=== PATIENT | male | born 1960 | race Caucasian/White ===

== ENCOUNTER 2022-07-13 13:28 | Inpatient (IN) | payer OTHER, SELFPAY ==
[2022-07-13] VITALS (23 sets, daily range): BP systolic 108–163; BP diastolic 60–90; PULSE 49–80; RESP 12–21; TEMP 36.3; O2SAT 93–99; BMI 29.5
--- NOTE | 2022-07-13 | ECHO_ITS ---
Patient Info Name: Fantasma Fermin Age: 62 years : 1960 Gender: Male Ht: 67 in Wt: 180 lbs BSA: 1.98 m2 HR: 68 bpm BP: 145 / 76 mmHg Heart Rhythm: Sinus Rhythm Technical Quality: Fair Exam Date: 07/13/2022 4:24 PM Exam Location: [facility] Pulmonary Patient Status: Inpatient Admit Date: 07/13/2022 Staff Ordering Physician: Onesimo Pretty MD (kim/arabella) Driver'S License Reviewing Officer: Jil Garcias RDCS Attending Provider: Onesimo Pretty MD (kim/arabella) Referring Physician: Sukhwinder BARRERA; Exam Type: CA echo dop color flow w con Study Info Indications - s/p STEMI Complete two-dimensional, color flow and Doppler transthoracic echocardiogram is performed with contrast to opacify the left ventricle and to improve the deliniation of the left ventricle endocardial borders. Contrast/Agitated Saline Contrast/Ag. Saline: Definity Amount: 3.00 ml Administered By: Jil Garcias RDCS Existing IV Access: Yes IV Access Condition: patent with no signs of infiltration Summary 1. Left ventricular systolic function is normal, estimated at 55-60%. 2. The left ventricular diastolic function is grade I diastolic dysfunction. 3. Right ventricular chamber dimension is normal. 4. Right ventricular systolic function is reduced. 5. No significant valvular disease. Left Ventricle Left ventricular chamber dimension is normal. Left ventricular systolic function is normal, estimated at 55-60%. There is no increased left ventricular wall thickness. The left ventricular diastolic function is grade I diastolic dysfunction. Right Ventricle Right ventricular chamber dimension is normal. Right ventricular systolic function is reduced. Left Atria Left atrial chamber dimension is normal. Right Atria Right atrial chamber dimension is normal. Aortic Valve The aortic valve is not well visualized. There is no aortic valve stenosis. There is no aortic valve regurgitation. Pulmonic Valve The pulmonic valve is not well visualized. Mitral Valve The mitral valve has normal leaflets. There is no mitral valve stenosis. There is no mitral valve regurgitation. Tricuspid Valve There is trace tricuspid valve regurgitation. Pericardium/Pleural There is no pericardial effusion. Aorta The aortic root size at the sinus of Valsalva is not well visualized. Left Ventricular Outflow Tract Name Value Normal LVOT 2D LVOT Diameter 1.99 cm LVOT Doppler LVOT Peak Gradient 2 mmHg LVOT Mean Gradient 1 mmHg LVOT VTI 13.57 cm LVOT VTI/AV VTI Ratio 0.59 LVOT Stroke Volume 42.34 ml LVOT CO 2.26 l/min LVOT CI 1.14 L/min/m2 Pulmonic Valve Name Value Normal RVOT Doppler
--- NOTE | 2022-07-13 | ECG_ITS ---
Measurements Intervals [place] Rate: 54 P: 43 NE: 184 QRS: 32 QRSD: 105 T: 48 QT: 434 QTc: 412 Interpretive Statements SINUS BRADYCARDIA WITH OCCASIONAL SUPRAVENTRICULAR PREMATURE COMPLEXES NO PREVIOUS ECG AVAILABLE FOR COMPARISON Electronically Signed On 07-13-2022 18:13:56 REMELT FURNACE EXPEDITER by Onesimo Pretty M.D.
--- NOTE | ~2022-07-13 | XR_ITS ---
EXAMINATION: XR chest 2V DATE: 07/15/2022 08:15 INDICATION: Chest pain. TECHNIQUE: Frontal and lateral views of the chest were obtained. COMPARISON: None. FINDINGS: A calcified right lung nodule and calcified right hilar lymph nodes are consistent with old granulomatous disease. No pleural effusion or pneumothorax. The heart size is normal. There are hernández ges of anterior fusion procedure in cervical spine. IMPRESSION: 1. No acute cardiopulmonary disease. Reviewed, dictated and finalized at location A. HALMIC SURGEON
--- NOTE | 2022-07-13 13:31 | ED_ITS ---
HPI - Chest Pain General Chief Complaint: Chest Pain Stated Complaint: stemi Source: RN notes reviewed History of Present Illness HPI narrative: Patient presents emergency department via EMS for chest pain. Patient states chest pain began while shoveling his car between [place] he states the pain is located over the midsternal chest and described as a pressure nature associate with shortness of breath. EMS was called and the patient was noted to have ST elevation and a code STEMI was called from the field and the Paint Line Production Supervisor team was activated. Patient denies any cardiac history states he does have a history of hypertension and tobacco use. States was given nitro and aspirin 325 by EMS dates the pain is mildly improved but still present in the midsternal chest pain does not radiate Related Data Allergies Allergy/AdvReac Type Severity Reaction Status Date / Time No Known Allergies Allergy Verified 07/13/22 13:39 Review of Systems Review of Systems: Gen.: Denies fevers or chills ENT: Denies congestion Respiratory: Denies shortness of breath or cough CV see HPI GI: Denies abdominal pain nausea, emesis or diarrhea Musculoskeletal: Denies back pain or muscle pain Neuro: Denies numbness, tingling, weakness or focal weakness Skin: Denies rash Except as documented, all other systems reviewed and negative [facility] Past Medical History Medical History (Updated 07/13/22 @ 13:33 by Renny Leach DO) Hypertension Social History Social History (Updated 07/13/22 @ 13:32 by Renny Leach DO) Smoking status: Current every day smoker Exam Narrative: APPEARANCE: No acute distress, nontoxic, resting in bed EYES: EOMI HEENT: Normocephalic, atraumatic, OMM RESPIRATORY: No respiratory distress Clear to auscultation bilaterally with no rhonchi wheezing or rales. CARDIOVASCULAR: Regular rate and rhythm without murmurs rubs or gallops. ABDOMINAL: Soft, nontender, nondistended, no rebound or guarding MUSCULOSKELETAl: Moves all extremities. No clubbing, cyanosis or edema. NEURO: Awake and alert. Following commands, speech normal, no focal deficits SKIN:: Warm, dry. No rashes lesions or abrasions PSYCHIATRIC: Normal affect/mood, Course Course Emergency Course: Dr. Pretty for cardiology condoned to see the patient upon initial arrival. This time reviewed the EKG by EMS no further EKG will be obtained in the ER and the patient will go to the Paint Line Production Supervisor at this time Discharge Plan Discharge Clinical Impression: ST elevation (STEMI) myocardial infarction Patient Disposition: Still a Patient Condition: Serious
--- NOTE | 2022-07-13 13:41 | PC.NURSE ---
Dry Plasterer came down to see pt gave verbal order for 180 mg of Brilinta and took pt to the Poultry Scientist
--- NOTE | 2022-07-13 13:43 | PM.IMHP ---
H&P: HPI History of Present Illness Date/Time: 07/13/22 13:43 Chief Complaint: Chest pain Narrative: Patient is a 62-year-old male with a history of hypertension and tobacco dependence who presented with acute chest pain. EMS called STEMI, concerning for inferior STEMI. Patient still with active chest pain on arrival to ED. We are called for emergent cardiac cath. Review of Systems Review of Systems: 12-point ROS obtained. Negative, unless stated in HPI. PMFSH Past Medical History Medical History Hypertension Social History Social History Smoking status: Current every day smoker Meds Home Medications and Allergies Allergies Allergy/AdvReac Type Severity Reaction Status Date / Time No Known Allergies Allergy Verified 07/13/22 13:39 Exam Const: General: in distress HENMT: Mouth: Yes moist mucous membranes Eyes: General: appearance normal, both eyes and all related structures Sclera: sclerae normal Neck: Neck: supple Resp: Effort & Inspection: normal respiratory effort Auscultation: diminished lung sounds Cardio: Rate: tachycardic Rhythm: regular rhythm Heart sounds: no murmurs GI: GI Palp: Yes Soft to palpation Skin: General skin exam: normal color Neuro: Speech: normal speech Extrem: General: normal to inspection Psych: Mental Status: mental status grossly normal Assessment and Plan Assessment and plan (1) ST elevation (STEMI) myocardial infarction: Code(s): I21.3 - ST elevation (STEMI) myocardial infarction of unspecified site Status: Acute (2) Hypertension: Code(s): I10 - Essential (primary) hypertension Status: Acute Plan Will proceed with emergent cardiac cath for STEMI. Loaded with ASA and Brilinta prior to cath.
--- NOTE | 2022-07-13 15:06 | WPDMODSED ---
Moderate Sedation Note-Pt Data Patient Data Diagnosis: STEMI Present Complaint: STEMI Procedure to be performed/Plan: Coronary angiography, LHC, +/- PCI Allergies Allergy/AdvReac Type Severity Reaction Status Date / Time No Known Allergies Allergy Verified 07/13/22 13:39 Current Medications: Active Medications Aspirin (Aspirin 81 Mg Enteric Tablet) 81 mg PO QAM [facility] Atorvastatin Calcium (Atorvastatin 40 Mg Tablet) 80 mg PO DAILY [facility] Nitroglycerin/Dextrose (Nitroglycerin In 5% Dextrose 50 Mg) 50 mg in 250 mls @ 1.5 mls/hr IV CONT .Q24H [place] Metoprolol Succinate (Metoprolol Succinate Ext Rel 25 Mg Tabcr) 25 mg PO QAM [facility] Perflutren Lipid Microsphere (Perflutren Lipid Microspheres 1.5 Ml Vial Diluted To 10 Ml Total Volume) 0 ml IV PUSH ONCE PRN; Protocol PRN Reason: adequate visualization Stop: 07/15/22 15:02 Ticagrelor (Ticagrelor 90 Mg Tablet) 90 mg PO Q12HR [place] Sedation/Anesthesia: No previous sedation/anesthesia problems (including family history). COUNT INCLUDES THE [facility] Past Medical History Medical History Hypertension Social History Social History Smoking status: Current every day smoker Mod Sed Physical Exam Physical Exam Pre Procedural Exam: Normal: Lungs, Heart Rate, Heart Rhythm, Neuro Exam, Abdomen, Extremities and Skin and Variation: Appearance (Mild distress) Hours since solid foods: 5 Hours since liquid intake: 5 Mallampati Classification: class III Internal Medicine - PN: Obj Da Meds/Results Medications: Active Medications Generic Name Dose Route Start Last Admin Trade Name Freq PRN Reason Stop Dose Admin Aspirin 81 mg 07/14/22 09:00 Aspirin 81 Mg Enteric Tablet PO QAM [facility] Atorvastatin Calcium 80 mg 07/13/22 15:05 Atorvastatin 40 Mg Tablet PO DAILY [facility] Nitroglycerin/Dextrose 50 mg in 250 mls @ 1.5 mls/hr 07/13/22 15:05 Nitroglycerin In 5% Dextrose 50 Mg IV CONT .Q24H [place] 5 MCG/MIN Metoprolol Succinate 25 mg 07/14/22 09:00 Metoprolol Succinate Ext Rel 25 Mg Tabcr PO QAM [facility] Perflutren Lipid Microsphere 0 ml 07/13/22 15:02 Perflutren Lipid Microspheres 1.5 Ml Vial Diluted To 10 Ml Total Volume IV PUSH 07/15/22 15:02 ONCE PRN adequate visualization Protocol Ticagrelor 90 mg 07/13/22 21:00 Ticagrelor 90 Mg Tablet PO Q12HR [facility] ASA Classification/Sedation ASA Classification/Sedation ASA Class: IV Emergent: Yes Risks: Risks, benefits and alternatives explained and patient/family accepted plan for sedation. Patient re-evaluated immediately prior to sedation.
--- NOTE | 2022-07-13 15:08 | WPDCARDPROC ---
Cardiac Cath Procedure Note Date of procedure:: 07/13/22 Performing physician:: CATHETERIZATION LABORATORY REPORT Procedure Date: 07/13/2022 Pencil Sorter: Onesimo Pretty M.D., [facility]? Referring Physician: Dr. Leach ([facility]) ? Anesthesia: Versed and Fentanyl were ordered and given in my presence at 13:48, procedure ended at 14:48. Supervision of nurse monitored moderate sedation with Versed and Fentanyl was provided for 60 minutes. Total of Versed 2mg and Fentanyl 50mcg were administered by the Bowling Floor Desk Clerk RN Kristel Macias. Pre-op Diagnosis: Inferior STEMI Post-op Diagnosis: 1. 99% stenosis of the distal RCA with acute thrombotic occlusion of the RPLV 2. Calcific 40% stenosis of the proximal LAD. The mid LAD has a focal 70-80% stenosis at the level of the bifurcation of the second diagonal vessel. 3. Moderate disease of small caliber LCX 4. Right-dominant coronary artery system 5. Successful PCI of the distal RCA with [place] x 1 6. Elevated left ventricular end-diastolic pressure of 32mmHg Procedure(s): 1. Moderate sedation 2. Ultrasound-guided access of the right radial artery 3. Coronary angiography 4. Left heart cath 5. IVUS-guided PCI of the mid-distal RCA with [place] x 1 Access Site: Right radial artery Brief History and Clinical Indications: Patient is a 62-year-old male with a history of hypertension and tobacco dependence who is referred for emergent cardiac cath for inferior STEMI. All risks, benefits and alternatives to left heart catheterization with or without percutaneous coronary intervention was discussed at length with the patient. Risk of complications including but not limited to bleeding, infection, arrhythmia, stroke, worsening kidney function, blood loss, groin hematoma, limb loss, emergency coronary artery bypass grafting, and even were discussed with the patient and all questions were answered. The patient understood and wished to proceed. Time out called, patient name, date of , medical record number, allergies, procedure performed, identify Pencil Sorter, patient and staff member concurred with accurate data, procedure carried on. Findings: LEFT HEART CATHETERIZATION FINDINGS: 1. Left main: The left main coronary artery is widely patent without any significant obstructive disease. 2. Left anterior descending: The proximal LAD is calcific and has a 40% stenosis. The ostium of the first diagonal branch has some haziness, however, vessel is small caliber and with FREDI 3 flow. The mid LAD at the level of the bifurcation of the second diagonal branch has a focal 70-80% stenosis. Remainder of the mid LAD has mild luminal irregularities. The distal LAD is small caliber and diffusely diseased. The second diagonal branch is a medium caliber vessel with mild luminal irregularities. 3. Left circumflex: The left circumflex is a small caliber vessel with diffuse disease with a moderate 60-70% stenosis in its mid portion prior to the bifurcation of a small caliber OM vessel. The OM vessel also has diffuse disease. 4. Right coronary artery: The RCA is a large caliber vessel. The RCA is the dominant vessel. The proximal-mid RCA has mild diffuse disease. The distal RCA prior to the bifurcation of the RPDA and RPLV has a 99% focal stenosis. The RPDA has mild luminal irregularities. The RPLV has acute thrombotic occlusion of its distal portion of the vessel. 5. Left ventricle: A. End-diastolic pressure 32mmHg. B. LV gram deferred. C. No significant gradient across aortic valve on catheter pullback. Description of Procedure: Informed consent signed and placed in the chart. Patient transferred to labour market economist room. Prepped and draped in usual sterile fashion. 2% lidocaine injected subcutaneously in right wrist area. 22-gauge venipuncture catheter used to access the right radial artery with the Seldinger technique. 6-FR slender sheath placed in right radial artery. Nitroglycerine and Verapamil were giv
[2022-07-13] MEDS: NITROGLYCERIN/D5W 200 MCG/ML 50 MG/250 ML BTL IV CONT (15:10)
[2022-07-13 16:14] LABS: Basophils Absolute Auto 0.1 K/mm3 (0.0-0.1); Basophils Percent Auto 0.9 % (0.2-1.2); Eosinophils Absolute Auto 0.3 K/mm3 (0-0.3); Eosinophils Percent Auto 3.3 % (0-4.4); Hematocrit 44.8 % (42.0-52.0); Hemoglobin 14.6 g/dL (14.0-18.0); Immature Granulocyte Absolute 0.03 K/mm3 (0.00-0.031); Immature Granulocyte Percent A 0.4 % (0-0.5); Lymphocytes Percent Auto 17.2 % (18.3-44.2); Mean Corpuscular HGB Conc 32.6 g/dl (32-36); Mean Corpuscular Hemoglobin 30.1 pg (26-34); Mean Corpuscular Volume 92.4 fl (80-100); Mean Platelet Volume 9.6 fl (7.4-10.4); Monocytes Absolute Auto 0.5 K/mm3 (0.1-0.6); Monocytes Percent Auto 6.3 % (2.6-8.5); Neutrophils Absolute Auto 5.9 K/mm3 (1.3-6.7); Neutrophils Percent Auto 71.9 % (45.5-73.1); Platelet Count Result 213 k/mm3 (150-375); Red Blood Count 4.85 M/mm3 (4.6-6.20); Red Cell Distribution Width 12.8 % (11.5-14.5); White Blood Count 8.2 K/mm3 (4.5-10.0)
[2022-07-13 16:24] LABS: Alanine Aminotransferase 38 U/L (6-50); Albumin Level 4.7 g/dL (3.5-5.1); Alkaline Phosphatase 96 U/L (38-126); Anion Gap 8 mmol/L (8-16); Aspartate Amino Transferase 32 U/L (17-59); Bilirubin,Total 0.4 mg/dL (0.2-1.3); Blood Urea Nitrogen 17 mg/dL (9-20); Calcium 8.8 mg/dL (8.4-10.2); Carbon Dioxide 28 mmol/L (22-30); Chloride 101 mmol/L (98-107); Cholesterol 241 mg/dL (0-200); Estimated CRCL calculation 65 ml/min; Estimated Glomerular Filt Rate > 60; Glucose 117 mg/dL (65-110); HDL Direct 35 mg/dL; Sodium 137 mmol/L (137-145); Triglycerides 325 mg/dL (<150)
--- NOTE | 2022-07-13 16:24 | ADMGEN ---
This patient, Fantasma Fermin, was admitted to Intensive Care Unit-3. Patient/family oriented to hospital policies and general routines including ID bracelet, bed and alarms, visiting hours, pain management, procedures, bathroom and other care routines, personal items, smoking policy, room service/diet, and visiting hours. Information on how to activate the Rapid Response Team has been discussed. Patient/Family are encouraged to report perceived risks to care and to ask questions if they do not understand what they are told or what they should do. Patient arrived on 15mcg/min of Nitro.
[2022-07-13 16:31] LABS: INR 1.5; Prothrombin Time 17.5 Seconds (11.1-14.7)
[2022-07-13 16:33] LABS: Partial Thromboplastin Time 71.4 SECONDS (22.3-36.8)
[2022-07-13] MEDS: ATORVASTATIN 40 MG TABLET 80 MG PO (16:33)
[2022-07-13 16:35] LABS: LDL Cholesterol Direct 142 mg/dL
[2022-07-13 16:40] LABS: Troponin I 0.085 ng/mL (0.000-0.034)
--- NOTE | 2022-07-13 16:52 | IVDEFINITY ---
Prior to administration of IV Definity the patient was educated on the risks and benefits of the imaging enhancing agent including potential adverse side effects. The patient verbalized understanding. Allergies were verified. No exclusion criteria were identified and at least one of the following inclusion criteria were met: 1) physician request, 2) patient technically difficult to image (per the [place] [employer] Echocardi[employer] guidelines of two or more segments not discernable within the apical view), or 3) questionable left ventricular function. ?
[2022-07-13] MEDS: PERFLUTREN LIPID MICROSPHERES 1.5 ML VIAL DILUTED TO 10 ML TOTAL VOLUME IV PUSH (17:00)
[2022-07-13 19:34] LABS: Troponin I 0.306 ng/mL (0.000-0.034)
[2022-07-13] MEDS: TICAGRELOR 90 MG TABLET PO (19:46)
--- NOTE | 2022-07-13 19:46 | PM.IMCN ---
Assessment and Plan Assessment and plan (1) ST elevation (STEMI) myocardial infarction: Code(s): I21.3 - ST elevation (STEMI) myocardial infarction of unspecified site Status: Acute Assessment and Plan: Continue with cardiac evaluation and treatment (2) Hypertension: Code(s): I10 - Essential (primary) hypertension Status: Acute Assessment and Plan: Blood pressure is better controlled now, will continue current meds and monitor closely. (3) Dyslipidemia (high LDL; low HDL): Code(s): E78.5 - Hyperlipidemia, unspecified Status: Acute Assessment and Plan: Diet counselling and medications (4) Smoking: Code(s): F17.200 - Nicotine dependence, unspecified, uncomplicated Status: Acute Assessment and Plan: Time spent more then 3 min in smoking counselling, all options explained. Will start nicotine patch. HPI Data of Consult Consult date: 07/13/22 Requesting Physician: Onesimo Pretty MD Primary Care Provider: PHYSICIAN NOT ON STAFF Consult Narrative Reason for consult: Hypertension and smoking Narrative: Fantasma Fermin is a 62 year old male with a history of hypertension and 7 packed year history of smoking was seen for consult today. patient status post cardiac catheterization stent placement and is pain-free now. Patient is a history smoking and hypertension however patient stop taking his blood pressure medication about 1 year ago. Patient denies any shortness of breath. He does not have abdominal pain, nausea or vomiting. Review of Systems Review of Systems: All systems reviewed & are unremarkable except as noted in HPI and below (the history and the physical exam.) [facility] Past Medical History Medical History Hypertension Family History Family History Father Acute myocardial infarction Hypertension Social History Social History Years smoked: 7 Smoking status: Current every day smoker Tobacco type: cigarettes Second hand tobacco smoke exposure: Yes Additional smoking assessment comments: previously quit for 15 years Alcohol intake: current Drinks per week: 7 Substance use: former Substance use type: marijuana Other substance usage details: drinks vodka and orangejuice in 12oz glass most days of the week. Lack of Transportation: No Lack of Food: Never True Current Housing: I Have Housing Concerned About Future Housing: No Difficulty Paying Gas/Electric Bills: No Difficulty Paying for Meds: No Currently Unemployed: No Education: High School Diploma/GED Difficulty w/ Childcare or Family Care: No Spiritual care concerns: No Meds Home Medications and Allergies Home Medications Medication Instructions Recorded Confirmed Type No Home Medications 07/13/22 07/13/22 History Allergies Allergy/AdvReac Type Severity Reaction Status Date / Time No Known Allergies Allergy Verified 07/13/22 13:39 Vital Signs Vital Signs - 24 hr 07/13/22 15:10 07/13/22 15:30 07/13/22 16:00 Pulse Rate 71 60 56 L Respiratory Rate Blood Pressure 112/68 124/84 140/82 Pulse Oximetry 07/13/22 16:45 07/13/22 15:10 07/13/22 15:15 Pulse Rate 78 75 Respiratory Rate 16 20 Blood Pressure 135/85 144/85 H 134/79 Pulse Oximetry 95 93 07/13/22 15:30 07/13/22 15:45 07/13/22 16:00 Pulse Rate 60 55 L 56 L Respiratory Rate 15 15 17 Blood Pressure 124/84 132/82 140/82 Pulse Oximetry 93 93 95 07/13/22 16:15 07/13/22 16:30 07/13/22 16:45 Pulse Rate 54 L 64 53 L Respiratory Rate 14 14 14 Blood Pressure 145/76 H 132/79 135/85 Pulse Oximetry 95 97 97 07/13/22 17:00 07/13/22 17:15 07/13/22 16:22 Pulse Rate 49 L 75 75 Respiratory Rate 18 21 H Blood Pressure 153/77 H 124/83 132/79 Pulse Oximetry 97 98 07/13/22 17:30
--- NOTE | 2022-07-13 22:31 | PC.NURSE ---
Cardiopulmonary Rehab Services flyer was given to patient.
[2022-07-13] MEDS: NICOTINE (*PBKC) 21 MG PATCH 1 PATCH TRANSDERM (22:49)
[2022-07-14] VITALS (15 sets, daily range): BP systolic 126–164; BP diastolic 63–93; PULSE 63–81; RESP 12–22; TEMP 36.5–36.9; O2SAT 93–99
[2022-07-14 08:24] LABS: Basophils Percent Auto 0.5 % (0.2-1.2); Eosinophils Absolute Auto 0.5 K/mm3 (0-0.3); Eosinophils Percent Auto 5.5 % (0-4.4); Hematocrit 43.3 % (42.0-52.0); Hemoglobin 14.7 g/dL (14.0-18.0); Immature Granulocyte Absolute 0.03 K/mm3 (0.00-0.031); Immature Granulocyte Percent A 0.3 % (0-0.5); Lymphocytes Absolute Auto 2.03 K/mm3 (0.9-3.2); Lymphocytes Percent Auto 23.7 % (18.3-44.2); Mean Corpuscular HGB Conc 33.9 g/dl (32-36); Mean Corpuscular Hemoglobin 30.2 pg (26-34); Mean Corpuscular Volume 88.9 fl (80-100); Monocytes Absolute Auto 0.6 K/mm3 (0.1-0.6); Monocytes Percent Auto 6.9 % (2.6-8.5); Neutrophils Absolute Auto 5.4 K/mm3 (1.3-6.7); Neutrophils Percent Auto 63.1 % (45.5-73.1); Platelet Count Result 227 k/mm3 (150-375); Red Blood Count 4.87 M/mm3 (4.6-6.20); Red Cell Distribution Width 12.8 % (11.5-14.5); White Blood Count 8.6 K/mm3 (4.5-10.0)
[2022-07-14 08:41] LABS: Alanine Aminotransferase 36 U/L (6-50); Albumin Level 4.3 g/dL (3.5-5.1); Alkaline Phosphatase 83 U/L (38-126); Anion Gap 7 mmol/L (8-16); Aspartate Amino Transferase 41 U/L (17-59); Bilirubin,Total 0.5 mg/dL (0.2-1.3); Blood Urea Nitrogen 13 mg/dL (9-20); Calcium 8.9 mg/dL (8.4-10.2); Carbon Dioxide 29 mmol/L (22-30); Chloride 100 mmol/L (98-107); Estimated CRCL calculation 65 ml/min; Estimated Glomerular Filt Rate > 60; Glucose 99 mg/dL (65-110); Potassium 3.9 mmol/L (3.4-5.0); Sodium 136 mmol/L (137-145)
[2022-07-14] MEDS: NICOTINE (*PBKC) 21 MG PATCH 1 PATCH TRANSDERM (08:45)
[2022-07-14] MEDS: ASPIRIN 81 MG ENTERIC TABLET PO (08:45)
[2022-07-14] MEDS: METOPROLOL SUCCINATE EXT REL 25 MG TABCR PO (08:45)
[2022-07-14] MEDS: TICAGRELOR 90 MG TABLET PO ×2 (08:45→21:39)
[2022-07-14] MEDS: ATORVASTATIN 40 MG TABLET 80 MG PO (08:45)
--- NOTE | 2022-07-14 09:13 | PM.PNCARD ---
Progress Note: A&P Assessment and Plan (1) ST elevation (STEMI) myocardial infarction: Code(s): I21.3 - ST elevation (STEMI) myocardial infarction of unspecified site Status: Acute Assessment and Plan: Continue dual anti-platelet therapy, metoprolol, statin. Okay to transfer to IMU. (2) Hypertension: Code(s): I10 - Essential (primary) hypertension Status: Acute Assessment and Plan: Near or slightly above goal. Will add losartan 25 mg daily (3) Dyslipidemia (high LDL; low HDL): Code(s): E78.5 - Hyperlipidemia, unspecified Status: Acute Assessment and Plan: On high-dose statin (4) Smoking: Code(s): F17.200 - Nicotine dependence, unspecified, uncomplicated Status: Acute Assessment and Plan: Tobacco abuse counseling is performed Subjective Date/time seen: 07/14/22 09:13 Interval history: 62-year-old admitted for chest pain and inferior ST-elevation myocardial infarction status post PCI Date of service 07/14/2022: No chest pain, shortness breath. Feels good today. Telemetry unremarkable Review of Systems Review of Systems: All systems reviewed & are unremarkable except as noted in HPI and below Constitutional: Constitutional: Denies body ache(s) Eyes: Eyes: Denies blurry vision ENT: Reports Normal hearing present Cardiovascular: Cardiovascular: Denies chest pain Respiratory: Respiratory: Denies cough Gastrointestinal: Gastrointestinal: Denies abdominal pain Genitourinary: Genitourinary: Denies hematuria and Denies dysuria Musculoskeletal: Musculoskeletal: Denies back pain Integumentary/Breasts: Skin/Breast: Denies skin pain Neurologic: Denies Abnormal speech present Psychiatric: Psychiatric: Denies behavioral changes Endocrine: Endocrine: Denies change in body appearance Hematologic/Lymphatic: Hematologic/Lymphatic: Denies easy bleeding Allergic/Immunologic: Allergic/Immunologic: Denies GI upset with certain foods Exam Narrative: Awake alert oriented appears stated age Const: General: comfortable and no acute distress HENMT: Face/Nose/Sinus: Normal nares present Mouth: Yes moist mucous membranes Eyes: General: appearance normal, both eyes and all related structures Sclera: sclerae normal Neck: Neck: supple and no JVD Carotids: no bruits Resp: Effort & Inspection: normal respiratory effort Auscultation: clear to auscultation bilaterally Cardio: Rate: regular rate Rhythm: regular rhythm Heart sounds: no murmurs GI: Inspection: non-distended GI Palp: Yes Soft to palpation Auscultation: normal bowel sounds Skin: General skin exam: normal color and no rashes or lesions noted Neuro: Speech: normal speech Motor exam (neuro): 5/5 motor strength present throughout Sensory Exam: normal sensation Extrem: General: normal to inspection Psych: Mental Status: mental status grossly normal Affect: normal affect Objective Data Vital Signs Vital Signs: Vital Signs - 24 hr 07/13/22 15:10 07/13/22 15:30 07/13/22 16:00 Temperature Pulse Rate 71 60 56 L Respiratory Rate Blood Pressure 112/68 124/84 140/82 Pulse Oximetry Oxygen Delivery 07/13/22 16:45 07/13/22 15:10 07/13/22 15:15 Temperature Pulse Rate 78 75 Respiratory Rate 16 20 Blood Pressure 135/85 144/85 H 134/79 Pulse Oximetry 95 93 Oxygen Delivery 07/13/22 15:30 07/13/22 15:45 07/13/22 16:00 Temperature Pulse Rate 60 55 L 56 L Respiratory Rate 15 15 17 Blood Pressure 124/84 132/82 140/82 Pulse Oximetry 93 93 95 Oxygen Delivery 07/13/22 16:15 07/13/22 16:30 07/13/22 16:45 Temperature Pulse Rate 54 L 64 53 L Respiratory Rate 14 14 14 Blood Pressure 145/76 H 132/79 135/85 Pulse Oximetry 95 97 97 Oxygen Delivery 07/13/22 17:00 07/13/22 17:15 07/13/22 16:22 Temperature Pulse Rate 49 L 75 75 Respiratory Rate 18 21 H Blood Pressure 153/77 H 124/83 132/79 Pulse Oximetry 97 98
--- NOTE | 2022-07-14 11:51 | WPDCNINT ---
Assessment and Plan Assessment and plan (1) ST elevation (STEMI) myocardial infarction: Code(s): I21.3 - ST elevation (STEMI) myocardial infarction of unspecified site Status: Acute Assessment and Plan: Status post cardiac catheterization 1. 99% stenosis of the distal RCA with acute thrombotic occlusion of the RPLV 2. Calcific 40% stenosis of the proximal LAD. The mid LAD has a focal 70-80% stenosis at the level of the bifurcation of the second diagonal vessel. 3. Moderate disease of small caliber LCX 4. Right-dominant coronary artery system 5. Successful PCI of the distal RCA with PHOENIX x 1 6. Elevated left ventricular end-diastolic pressure of 32mmHg Lasix IV given. Now on room air Off nitroglycerin infusion now chest pain-free with with blood pressure in adequate range Continue statin beta-saeed Continue dual antiplatelet therapy Echo showed Summary ? 1. Left ventricular systolic function is normal, estimated at 55-60%. ? 2. The left ventricular diastolic function is grade I diastolic dysfunction. ? 3. Right ventricular chamber dimension is normal. ? 4. Right ventricular systolic function is reduced. ? 5. No significant valvular disease. (2) Dyslipidemia (high LDL; low HDL): Code(s): E78.5 - Hyperlipidemia, unspecified Status: Acute Assessment and Plan: Continue atorvastatin (3) Smoking: Code(s): F17.200 - Nicotine dependence, unspecified, uncomplicated Status: Acute Assessment and Plan: Patient has Nicoderm patch on Patient was counseled and encouraged to quit smoking (4) Hypertension: Code(s): I10 - Essential (primary) hypertension Status: Acute Assessment and Plan: Blood pressure in controlled range down Of nitroglycerin infusion Continue Cozaar and metoprolol Plan DVT prophylaxis -patient expected to ambulate Stress ulcer prophylaxis - Nutrition -heart healthy diet Code Status - Full Code Transfer out of ICU 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 Chest pain was middle of the chest, he states that it felt like that large food got stuck in his chest, pain was 10/10 severe, radiated to left arm with numbness of left arm, pain was associated with nausea but no vomiting, associated with shortness of breath. In ER patient was suspected of inferior STEMI and Cardiology was consulted patient was taken to cardiac catheterization lab and underwent cardiac catheterization which showed 1. 99% stenosis of the distal RCA with acute thrombotic occlusion of the RPLV 2. Calcific 40% stenosis of the proximal LAD. The mid LAD has a focal 70-80% stenosis at the level of the bifurcation of the second diagonal vessel. 3. Moderate disease of small caliber LCX 4. Right-dominant coronary artery system 5. Successful PCI of the distal RCA with PHOENIX x 1 6. Elevated left ventricular end-diastolic pressure of 32mmHg Patient was given IV Lasix. Patient had elevated blood pressure and was started on nitroglycerin infusion. Postprocedure patient was admitted to ICU for further evaluation management. This morning when I saw the patient he states he is feeling much better and denies any complaints. He states his chest pain has resolved and denies any shortness breast. Patient denies fever, chest pain, shortness of breath, cough, nausea vomiting, abdominal pain,, diarrhea, headache or constipation. Review of system is positive for pain in the neck from past surgeries, numbness of left hand which is chronic. All other systems were reviewed and were negative Review of Systems Review of Systems: All systems reviewed & are unremarkable except as noted in HPI and below (HPI) [facility] Past Medical History Medical History Hypertension Fami
--- NOTE | 2022-07-14 18:18 | PM.IMPN ---
Progress Note: A&P Assessment and Plan (1) ST elevation (STEMI) myocardial infarction: Code(s): I21.3 - ST elevation (STEMI) myocardial infarction of unspecified site Status: Acute Assessment and Plan: Status post cardiac catheterization 1. 99% stenosis of the distal RCA with acute thrombotic occlusion of the RPLV 2. Calcific 40% stenosis of the proximal LAD. The mid LAD has a focal 70-80% stenosis at the level of the bifurcation of the second diagonal vessel. 3. Moderate disease of small caliber LCX 4. Right-dominant coronary artery system 5. Successful PCI of the distal RCA with PHOENIX x 1 6. Elevated left ventricular end-diastolic pressure of 32mmHg Lasix IV given. Now on room air Off nitroglycerin infusion now chest pain-free with with blood pressure in adequate range Continue statin beta-saeed Continue dual antiplatelet therapy Echo showed Summary ? 1. Left ventricular systolic function is normal, estimated at 55-60%. ? 2. The left ventricular diastolic function is grade I diastolic dysfunction. ? 3. Right ventricular chamber dimension is normal. ? 4. Right ventricular systolic function is reduced. ? 5. No significant valvular disease. (2) Dyslipidemia (high LDL; low HDL): Code(s): E78.5 - Hyperlipidemia, unspecified Status: Acute Assessment and Plan: Continue atorvastatin (3) Smoking: Code(s): F17.200 - Nicotine dependence, unspecified, uncomplicated Status: Acute Assessment and Plan: Patient has Nicoderm patch on Patient was counseled and encouraged to quit smoking (4) Hypertension: Code(s): I10 - Essential (primary) hypertension Status: Acute Assessment and Plan: Blood pressure in controlled range down Of nitroglycerin infusion Continue Cozaar and metoprolol Plan DVT prophylaxis -patient expected to ambulate Stress ulcer prophylaxis - Nutrition -heart healthy diet Code Status - Full Code Transfer out of ICU today Subjective Date/time seen: 07/14/22 18:18 Feeling better, no sob or chest pain. No abdominal pain, mood stable Review of Systems Review of Systems: All systems reviewed & are unremarkable except as noted in HPI and below (HPI) Exam Narrative: General: Pt is alert awake and in NAD Lungs/Chest: Trachea central Clear BS B/L, No crackles or wheezing. Cardiac: RRR. Normal S1 S2. No murmurs Circulation: Pedal pulses are intact and symmetrical. Abdomen: Normal bowel sounds.. Soft. NT. ND. Extremities: No clubbing, cyanosis or edema. Warm : Joel in place Neurologic: Follows commands. Moves all 4 extremities PERRL Skin: No Rash Objective Data Vital Signs Vital Signs: Vital Signs - 24 hr 07/13/22 18:30 07/13/22 18:45 07/13/22 19:00 Temperature Pulse Rate 65 74 63 Respiratory Rate 12 19 17 Blood Pressure 146/75 H 146/90 H 142/82 H Pulse Oximetry 99 99 97 Oxygen Delivery 07/13/22 19:37 07/13/22 20:00 07/13/22 21:00 Temperature 36.3 C L Pulse Rate 68 69 80 Respiratory Rate 13 21 H 18 Blood Pressure 117/60 108/65 Pulse Oximetry 98 98 99 Oxygen Delivery 07/13/22 20:00 07/13/22 20:00 07/13/22 22:00 Temperature Pulse Rate 69 80 70 Respiratory Rate 18 Blood Pressure Pulse Oximetry 99 Oxygen Delivery Room Air 07/13/22 22:00 07/13/22 23:00 07/14/22 00:00 Temperature Pulse Rate 70 63 63 Respiratory Rate 20 14 Blood Pressure 134/68 140/78 Pulse Oximetry 98 95 Oxygen Delivery 07/14/22 00:00 07/14/22 00:00 07/14/22 01:00 Temperature 36.8 C Pulse Rate 63 80 64 Respiratory Rate 12 18 16 Blood Pressure 141/78 H 136/80 Pulse Oximetry 93 99 96 Oxygen Delivery Room Air 07/14/22 02:00 07/14/22 02:00 07/14/22 04:00 Temperature Pulse Rate 66 66 80 Respiratory Rate 18 18 Blood Pressure 135/63 Pulse Oximetry 96 99 Oxygen Delivery Room Air 07/14/22 04:00 07/14/22 04:00 07/14/22 06:00 Temperature 36.5 C Pulse Rate 80 80 67 Respirator
[2022-07-14] MEDS: LOSARTAN POTASSIUM 25 MG TABLET PO (19:15)
[2022-07-15] VITALS (8 sets, daily range): BP systolic 113–134; BP diastolic 78–83; PULSE 65–84; RESP 12–23; TEMP 36.5–36.6; O2SAT 92–97
[2022-07-15 05:07] LABS: Hematocrit 43.8 % (42.0-52.0); Hemoglobin 14.8 g/dL (14.0-18.0); Mean Corpuscular HGB Conc 33.8 g/dl (32-36); Mean Corpuscular Hemoglobin 30.1 pg (26-34); Mean Corpuscular Volume 89.2 fl (80-100); Mean Platelet Volume 9.8 fl (7.4-10.4); Platelet Count Result 244 k/mm3 (150-375); Red Blood Count 4.91 M/mm3 (4.6-6.20); Red Cell Distribution Width 12.6 % (11.5-14.5); White Blood Count 8.8 K/mm3 (4.5-10.0)
[2022-07-15 05:20] LABS: Alanine Aminotransferase 37 U/L (6-50); Albumin Level 4.5 g/dL (3.5-5.1); Alkaline Phosphatase 81 U/L (38-126); Anion Gap 6 mmol/L (8-16); Aspartate Amino Transferase 39 U/L (17-59); Bilirubin,Total 0.6 mg/dL (0.2-1.3); Blood Urea Nitrogen 16 mg/dL (9-20); Calcium 9.2 mg/dL (8.4-10.2); Carbon Dioxide 28 mmol/L (22-30); Chloride 102 mmol/L (98-107); Estimated CRCL calculation 65 ml/min; Estimated Glomerular Filt Rate > 60; Glucose 95 mg/dL (65-110); Magnesium 2.1 mg/dL (1.6-2.3); Potassium 4.2 mmol/L (3.4-5.0); Sodium 136 mmol/L (137-145)
[2022-07-15] MEDS: METOPROLOL SUCCINATE EXT REL 25 MG TABCR PO (08:44)
[2022-07-15] MEDS: LOSARTAN POTASSIUM 25 MG TABLET PO (08:44)
[2022-07-15] MEDS: ASPIRIN 81 MG ENTERIC TABLET PO (08:44)
[2022-07-15] MEDS: NICOTINE (*PBKC) 21 MG PATCH 1 PATCH TRANSDERM (08:44)
[2022-07-15] MEDS: TICAGRELOR 90 MG TABLET PO (08:44)
[2022-07-15] MEDS: ATORVASTATIN 40 MG TABLET 80 MG PO (08:44)
--- NOTE | 2022-07-15 11:57 | PM.DS ---
DS: Admitting Diagnosis Discharge Date 07/15/2022 Admitting Diagnosis inferior wall FL DS: Discharge Diagnosis Discharge Diagnosis (1) ST elevation (STEMI) myocardial infarction: Code(s): I21.3 - ST elevation (STEMI) myocardial infarction of unspecified site Status: Acute DS: Summary Hospital Course Reason for hospitalization: acute ST segment elevation FL Hospital Course: this is a 62-year-old man who came to the hospital emergency room with chest pain radiating into the left arm on the evening of admission. He had ECG evidence of acute ST segment inferior wall FL. He was brought to the cardiac catheterization lab where he was found to have a distal occlusion of the right coronary artery. He was taken to the laboratory scientist emergently by Dr. Pretty where successful PCI was performed receiving a drug-eluting stent to the distal RCA with a very good anatomical result. The patient had no post FL complications in the ICU he has not had any chest pain arrhythmias or congestive heart failure P was placed on standard guideline directed medical therapy and has done very well today he is a good candidate for discharge he is ambulatory asymptomatic and free of complaints. Discharge medications are as detailed below. He will follow up with Dr. Pretty in the office at least once. 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 Time spent discussing smoking cessation with patient: more than 10 minutes Status at Discharge Functional status at discharge: independent ambulation Overall status at discharge: patient is back to baseline Time Spent with Patient Time attestation: Total time spent providing and/or coordinating discharge services: Time spent: Less than 30 minutes Exam Const: General: comfortable and no acute distress HENMT: Mouth: Yes moist mucous membranes Eyes: Sclera: sclerae normal Pupils: Equal, round and reactive pupils present Neck: Neck: supple and no JVD Resp: Effort & Inspection: normal respiratory effort Auscultation: clear to auscultation bilaterally Cardio: Rate: regular rate Rhythm: regular rhythm Other: No murmur no gallop no rub GI: GI Palp: Yes Soft to palpation Auscultation: normal bowel sounds Skin: General skin exam: normal color Neuro: Other: alert and oriented x3 Extrem: General: normal to inspection Other: no edema, pulses intact DS: Data Data Completed and Pending Labs on day of discharge: Labs from last 24 hours 07/15/22 07/15/22 04:28 04:28 WBC 8.8 RBC 4.91 Hgb 14.8 Hct 43.8 MCV 89.2 MCH 30.1 MCHC 33.8 RDW 12.6 Plt Count 244 MPV 9.8 Sodium 136 L Potassium 4.2 Chloride 102 Carbon Dioxide 28 Anion Gap 6 L BUN 16 Creatinine 1.00 Estim Creat Clear Calc 65 Estimated GFR > 60 Glucose 95 Calcium 9.2 Magnesium 2.1 Total Bilirubin 0.6 AST 39 ALT 37 Alkaline Phosphatase 81 Total Protein 7.0 Albumin 4.5 Discharge Plan Discharge Attending physician on discharge: Onesimo Pretty Consulting providers: Zain Clarke Discharging Clinician: Dilip Tong Anticipated Discharge Date/Time: 07/15/22 12:05 Patient Disposition: Home, Self-Care Activity: as tolerated Diet: heart healthy Patient Instructions: Antibiotic Form, Heart Attack (DC), How to Stop Smoking (DC), Cigarette Smoking and Your Health (GEN), Heart Catheterization (DC) Stand Alone Forms: General Discharge Information Follow-up/Referrals: Onesimo Pretty MD [Physician] - Discharge Medications: New atorvastatin 40 mg Tablet 80 mg PO DAILY Qty: 90 3RF aspirin 81 mg Tablet,Delayed Release (Dr/Ec) 81 mg PO QAM Qty: 90 3RF losartan 25 mg Tablet 25 mg PO DAILY Qty: 90 3RF metoprolol succinate [Toprol XL] 25 mg Tablet Extended Release 24 Hr 25 mg PO QAM Qty: 90 3RF Brilinta 90 mg Tablet 90 mg PO Q12HR Qty: 180 3RF
== END 2022-07-15 12:35 | disposition home or self-care (01) | DRG 174 ==
LOC: ANHED 13:49 → ANHICU 13:51
PROVIDERS: Internal Medicine; Admitting Provider Internal Medicine; Emergency Provider Emergency Medicine; Visit Provider Specialist
PROC: 4A023N7 Measurement of Cardiac Sampling and Pressure, Left Heart, Percutaneous Approach (ICD-10-PCS; CPT 93452; principal; 2022-07-13 13:35)
PROC: 027034Z Dilation of Coronary Artery, One Artery with Drug-eluting Intraluminal Device, Percutaneous Approach (ICD-10-PCS; 2022-07-13 13:35)
PROC: 027034Z Dilation of Coronary Artery, One Artery with Drug-eluting Intraluminal Device, Percutaneous Approach (ICD-10-PCS; 2022-07-13 13:35)
DX: I21.3 ST elevation (STEMI) myocardial infarction of unspecified site (principal); I25.10 Atherosclerotic heart disease of native coronary artery without angina pectoris; E78.5 Hyperlipidemia, unspecified; I10 Essential (primary) hypertension; F17.210 Nicotine dependence, cigarettes, uncomplicated
CPT/HCPCS: 36415; 71046; 80053; 80061; 83036; 83735; 84443; 84484; 85025; 85027; 85610; 85730; 86850; 86900; 86901; 92978; 93005; 93458; 99285; A9270; C1725; C1753; C1769; C1874; C1887; C1894; C8929; C9606; J0583; J1644; J1940; Q9957